=== PATIENT | male | born 1975 | race Caucasian/White ===

== ENCOUNTER 2017-07-14 10:07 | Emergency (ER) | payer OTHER ==
[~2017-07-14] VITALS: Ht 170.2 cm; Wt 77.3 kg
[~2017-07-14 10:07] MED LIST: BACL10TA PO; IBUP-2070 PO
[2017-07-14] MEDS ORDERED: KETOROLAC TROMETHAMINE 60 MG/2 ML VIAL IM ONE (11:45)
[2017-07-14] MEDS ORDERED: HYDROCODONE/ACETAMINOPHEN 10-325 MG TABLET PO ONE (11:45)
[2017-07-14 13:35] VITALS: BP 136/77
== END 2017-07-14 14:44 | disposition home or self-care (01) ==
LOC: EMS 10:08
DX: S82.402A Unspecified fracture of shaft of left fibula, initial encounter for closed fracture (principal); M54.5 Low back pain; M25.572 Pain in left ankle and joints of left foot; W01.0XXA Fall on same level from slipping, tripping and stumbling without subsequent striking against object, initial encounter; Y93.89 Activity, other specified; Y92.89 Other specified places as the place of occurrence of the external cause; Y99.8 Other external cause status
CPT/HCPCS: 29515; 72100; 73610; 73630; 96372; 99284; J1885

== ENCOUNTER 2018-01-09 19:42 | Emergency (ER) | payer OTHER ==
[~2018-01-09] VITALS: Ht 172.7 cm; Wt 81.8 kg
[2018-01-09] MEDS ORDERED: PredniSONE 20 MG TABLET PO ONE (20:45)
[2018-01-09] MEDS ORDERED: DiphenhydrAMINE HCL 25 MG CAPSULE PO ONE (20:45)
[2018-01-09] MEDS ORDERED: IBUPROFEN 800 MG TABLET PO ONE (21:00)
[2018-01-09 21:30] VITALS: BP 137/87
== END 2018-01-09 21:54 | disposition home or self-care (01) ==
LOC: EMS 19:44
DX: T63.391A Toxic effect of venom of other spider, accidental (unintentional), initial encounter (principal); L03.221 Cellulitis of neck; G89.29 Other chronic pain; M54.9 Dorsalgia, unspecified; Y92.89 Other specified places as the place of occurrence of the external cause
CPT/HCPCS: 99284; J7512

== ENCOUNTER 2019-07-27 15:46 | Emergency (ER) | payer OTHER ==
[~2019-07-27] VITALS: Ht 172.7 cm; Wt 81.8 kg
[2019-07-27] MEDS ORDERED: LIDOCAINE 5% TRANSDERMAL PATCH TD ONE (17:30)
[2019-07-27] MEDS ORDERED: IBUPROFEN 400 MG TABLET PO ONE (17:30)
[2019-07-27] MEDS ORDERED: METHOCARBAMOL 500 MG TABLET PO ONE (17:30)
[2019-07-27 18:03] VITALS: BP 133/85
== END 2019-07-27 18:07 | disposition home or self-care (01) ==
LOC: EMS 15:46
DX: G89.29 Other chronic pain (principal); M54.5 Low back pain